=== PATIENT | female | born 1960 | race Caucasian/White ===

== ENCOUNTER → 2017-05-16 | Outpatient (CLI) | payer OTHER ==
[~2017-05-16] MED LIST: GADOBUTROL 10 ML VIAL IVP ONE
== END ==
LOC: FIMAGING 14:01
PROVIDERS: ATTEND Internal Medicine Hematology & Oncology
DX: Z12.39 Encounter for other screening for malignant neoplasm of breast (principal); Z85.3 Personal history of malignant neoplasm of breast; Z90.12 Acquired absence of left breast and nipple
CPT/HCPCS: A9585

== ENCOUNTER 2017-06-12 06:51 | Day surgery (SDC) | payer OTHER ==
--- NOTE | 2017-06-03 10:31 | GHP ---
[f rep st] PREOP HISTORY AND PHYSICAL DATE OF ADMISSION: 06/12/2017 HISTORY OF PRESENT ILLNESS: The patient is a pleasant 57-year-old female with a history of recurrent left breast cancer who now presents with a left chest wall recurrence and is here for wide local excision. The patient was initially diagnosed with a T1c N1a M0 grade 2 invasive ductal carcinoma which was ER/SC positive and HER-2/darrell negative in August of 2008. She was treated with lumpectomy and radiation therapy and declined hormonal therapy at that time. In 2012, she was found to have a new abnormality in her left breast on routine mammography, and a biopsy revealed a new grade 1 invasive ductal carcinoma, and so she elected for unilateral mastectomy. [place] node was not detected at that time due to her previous axillary lymph node dissection. Due to osteopenia , she opted out of hormonal therapy again. She presented to us with small red nodules under her left mastectomy scar. Initially she thought these were mosquito bites, but they did not go away. Ultimately, biopsy in the office was consistent with metastatic breast cancer. Since then, she has seen her oncologist, Dr. Freeman. She has had an MRI showing a fluid collection measuring 5 cm x 4 cm x 0.8 cm. PET-CT showed no evidence of metastatic disease. PAST MEDICAL HISTORY: Includes breast cancer, as outlined above. Also history of migraine headaches and atrial fibrillation. PAST SURGICAL HISTORY: Lumpectomy with axillary node dissection and unilateral mastectomy as described above. MEDICATIONS: Include: Aspirin, turmeric, calcium, magnesium, CoQ10, vitamin D , B complex. ALLERGIES: Benadryl, codeine, sulfa. SOCIAL HISTORY: Patient is . She is retired from [employer]. She is a never smoker and drinks alcohol on rare occasion. She has a son, and her family lives in [place]. FAMILY HISTORY: Father: Sudden cardiac disease in his 40s. REVIEW OF SYSTEMS: Negative aside from that in the HPI. PHYSICAL EXAMINATION: GENERAL: Well-developed, well-nourished, 57-year-old female, alert and oriented x3 and in no acute distress. HEENT: Normocephalic, atraumatic. CHEST: Clear to auscultation bilaterally. CARDIAC: Regular rate and rhythm. ABDOMEN: Soft, nontender. EXTREMITIES: Warm and dry without edema. BREASTS: Surgical absence of left breast. Inflammation without redness inferior to her mastectomy scar on the left lateral chest wall. Biopsy sites healing. No erythema. No lymphadenopathy. IMPRESSION: This is a 57-year-old female with history of 2 primary left breast cancers now status post mastectomy with chest wall recurrence and no imaging evidence of distant metastasis. PLAN: The plan is to proceed with local wide excision of her left chest wall. 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 Risks and options have been discussed including, but not limited to, bleeding, infection, injury to a nerve, failure to close wound, need for skin graft, damage to surrounding structures, recurrence, need for further surgery and/or therapies and other problems, and she requests to proceed. /[id number]/MODL MTDD
[2017-06-12] MEDS ORDERED: LIDOCAINE 1% 2 ML INJ ONE (07:11)
[2017-06-12] MEDS ORDERED: ceFAZolin 2 GM/SWFI 2 GM/20 ML SYR IVP ONE (07:16)
[2017-06-12] MEDS ORDERED: LR 1,000 ML IV ONE (07:20)
--- NOTE | 2017-06-12 07:24 | PDHPUP ---
History & Physical Update H&P update statement: This history and physical update is based on an assessment of the patient which was completed after admission or registration (within 24 hours), but prior to the surgery/procedure. H&P update: H&P reviewed & patient examined, no change in patient's condition since H&P completed
--- NOTE | 2017-06-12 08:07 | PDANEPAE ---
ANE History of Present Illness excision of l chest wall mass. History of breast mass ANE Past Medical History - Cardiovascular History Hx Hypertension: No Hx Arrhythmias: Yes Hx Coronary Artery / Peripheral Vascular Disease: No Hx CHF / Valvular Disease: No Cardiovascular History Comment: chronic paroxismal Afib - asymptomatic. father of [place] age 48 - Pulmonary History Hx COPD: No Hx Asthma/Reactive Airway Disease: Yes Hx Recent Upper Respiratory Infection: No Hx Oxygen in Use at Home: No Hx Sleep Apnea: No Sleep Apnea Screening Result - Last Documented: Negative Pulmonary History Comment: asthma as teenager - allergy induced - Neurologic History Hx Cerebrovascular Accident: No Hx Seizures: No Hx Dementia: No Neurologic History Comment: migraine H/As - Endocrine History Hx Diabetes: No Hypothyroid: No Obesity: no - Renal History Hx Renal Disorders: Yes Renal History Comment: occas urinary frequency - Liver History Hx Hepatic Disorders: No - Neurological & Psychiatric Hx Hx Neurological and Psychiatric Disorders: No - Cancer History Hx Cancer: Yes Cancer History Comment: L breast CA. L breast lumpectomy 2009x2, with radiation. 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 occ. heartburn with late meals\\\\\\\\\\\\\\\\\\. colonoscopy 2009 with mild diverticulitis - Other Health History Other Health History: early onset macular degeneration. mild osteoarthritis to neck. missing upper R tooth - Chronic Pain History Chronic Pain: No - Surgical History Prior Surgeries: MASTECTOMY LENOA. AXILLARY EXCISION. L breast lumpectomy 08/18. revision 10/16. emergent C section 1997 ANE Review of Systems Review of Systems: - Exercise capacity METS (RN): 4 METS ANE Patient History - Allergies Allergies/Adverse Reactions: codeine Allergy (Intermediate, Verified 08/17/13 12:59) Other-Enter Comments latex Allergy (Intermediate, Verified 08/17/13 12:59) Rash Sulfa (Sulfonamide Antibiotics) Allergy (Intermediate, Verified 08/17/13 12:59) Altered Taste unknown antibiotic Allergy (Intermediate, Uncoded 06/11/17 14:47) legs swelling - Home Medications Home Medications: Cholecalciferol Vit D3 [Vitamin D3 2000 units (OTC)] 4,000 units PO DAILY [Last Taken 06/07/17] Herbals/Supplements -Info Only 1 each PO AD 08/16/13 [Last Taken 06/07/17] Ubidecarenone [Co Q10] 100 mg PO DAILY 08/16/13 [Last Taken 06/07/17] Calcium Carbonate [Tums 500MG (OTC)] 1,000 mg PO PRN PRN 08/17/13 [Last Taken ] - NPO status NPO Since - Liquids (Date): 06/11/17 NPO Since - Liquids (Time): 22:45 NPO Since - Solids (Date): 06/11/17 NPO Since - Solids (Time): 22:15 - Anes Hx Anes Hx: post operative nausea - Smoking Hx Smoking Status: Never smoked - Alcohol Use Alcohol Use: None - Family Anes Hx Family Anes Hx: none Family Hx Anesthesia Complications: no ANE Labs/Vital Signs - Vital Signs Blood Pressure: 112/71 Heart Rate: 97 Respiratory Rate: 16 O2 Sat (%): 96 Height: 161.93 cm Weight: 48.988 kg ANE Physical Exam - Airway Neck exam: FROM Mallampati Score: Class 1 - Pulmonary Pulmonary: clear to auscultation - Cardiovascular Cardiovascular: regular rate and rhythym - ASA Status ASA Status: II ANE Anesthesia Plan Anesthesia Plan: GA w LMA
[2017-06-12] MEDS ORDERED: THROMBIN (BOVINE) 5,000 UNIT VIAL TP ONE ×2 (08:16→08:44)
[2017-06-12] MEDS ORDERED: PROPOFOL 200 MG/20 ML VIAL ONE ×2 (08:20→08:26)
[2017-06-12] MEDS ORDERED: fentaNYL 100 MCG/2 ML INJ ONE (08:20)
[2017-06-12] MEDS ORDERED: DEXAMETHASONE 4 MG/ML VIAL ONE (08:22)
[2017-06-12] MEDS ORDERED: MIDAZOLAM 2 MG/2 ML VIAL IVP ONE (08:24)
[2017-06-12] MEDS ORDERED: BUPIVACAINE 0.5% 30 ML SDV ONE (08:36)
[2017-06-12] MEDS ORDERED: CALCIUM CHLORIDE 1 GM/10 ML INJ ONE (08:44)
[2017-06-12] MEDS: CALCIUM CHLORIDE 1 GM/10 ML INJ ONE ×2 (08:50→09:43)
[2017-06-12] MEDS ORDERED: ONDANSETRON 4 MG/2 ML VIAL ONE (09:17)
[2017-06-12] MEDS ORDERED: KETOROLAC 30 MG/1 ML SDV ONE (09:30)
[2017-06-12] MEDS ORDERED: DEXAMETHASONE 4 MG/ML VIAL IVP PRN (10:05)
[2017-06-12] MEDS ORDERED: NALOXONE HCL 0.4 MG/ML INJ IVP PRN (10:05)
[2017-06-12] MEDS ORDERED: PROMETHAZINE HCL 25 MG/ML INJ IVP PRN (10:05)
[2017-06-12] MEDS ORDERED: HYDROCODONE/APAP 5/325 TAB PO PRN (10:05)
[2017-06-12] MEDS ORDERED: fentaNYL 100 MCG/2 ML INJ IVP PRN (10:05)
--- NOTE | 2017-06-12 10:22 | POSTOPPROG ---
Post Op Note Date of Operation: 06/12/17 Surgeon: Stanley Metzger Lamp Mechanic: Stanley VILLANUEVA Anesthesiologist: Dr Swenson Anesthesia: GET(General Endotracheal) Pre-op Diagnosis: left chest mass Post-op Diagnosis: same, recurrent cancer Indication: recurrent cancer Procedure: Excision large Left chest wall mass, PRP injection Findings: chest wall mass Inf/Abcess present in the surg proc area at time of surgery?: No Depth: Organ Space EBL: 50-100 Drains: Simba Marino
--- NOTE | 2017-06-12 10:38 | POSTANESTH ---
Post Anesthetic Evaluation Cardiovascular Status: Normal, Stable Respiratory Status: Normal, Stable Level of Consciousness/Mental Status: Can Participate in Eval Pain Control: Adequate, Prn Tx Ordered Nausea/Vomiting Control: Adequate, Prn Tx Ordered Complications Possibly Related to Anesthesia: None Noted
[2017-06-12 10:47] VITALS: TEMP 97.5; O2SAT 95
[2017-06-12 10:55] VITALS: RESP 14
[2017-06-12 12:09] VITALS: BP 104/72; PULSE 59
--- NOTE | 2017-06-28 12:52 | GOP ---
[f rep st] OPERATIVE REPORT DATE OF OPERATION: 06/12/2017 SURGEON: Eladio Moreland MD COLOR ARTIST: Stanley Metzger, PAC. ANESTHESIOLOGIST: Jair Swenson MD. PREOPERATIVE DIAGNOSIS: Chest wall recurrence of breast cancer. POSTOPERATIVE DIAGNOSIS: Chest wall recurrence of breast cancer. PROCEDURE PERFORMED: Wide excision of chest wall mass with advancement flap closure and some platele t-rich plasma injection. FINDINGS: DESCRIPTION OF PROCEDURE: The patient was taken to the operating room, where she received satisfacto ry general endotracheal anesthesia by Dr. Swenson. She was placed in a supine position with the left a rm outstretched on an arm board, prepped and draped in the usual sterile fashion. Elliptical skin in cision was made to include her previous mastectomy scar as well as the scar of her recent biopsy. Fu ll-thickness excision was done down to the ribs, including the pectoral muscle underneath the biopsy cavity, including the entire seroma cavity from her biopsy. Hemostasis was carefully obtained. The entire specimen was oriented and sent to Pathology. Skin flaps were elevated up as much as possible and advanced. Some protein-rich plasma had been obtained and was sprayed over the incision along wit h some 0.5% Marcaine and some topical thrombin. A 10 mm flat MATTI drain was brought out through a sepa rate stab incision and secured to the skin with a silk suture. The wound was then closed with 3-0 Vi cryl for the subcutaneous tissue and a running 3-0 Monoderm Quill for the skin. Wound was dressed. She tolerated procedure well, taken to recovery room in good condition. /[id number]/MODL
== END 2017-06-12 12:30 | disposition home or self-care (01) ==
LOC: FSGY 06:51
PROVIDERS: ATTEND Surgery
PROC: 3E013GC Introduction of Other Therapeutic Substance into Subcutaneous Tissue, Percutaneous Approach (ICD-10-PCS; principal; 2017-06-12 08:30)
PROC: 0HTU0ZZ Resection of Left Breast, Open Approach (ICD-10-PCS; principal; 2017-06-12 08:30)
DX: C50.412 Malignant neoplasm of upper-outer quadrant of left female breast (principal); I48.92 Unspecified atrial flutter; M85.80 Other specified disorders of bone density and structure, unspecified site; G43.909 Migraine, unspecified, not intractable, without status migrainosus; Z82.49 Family history of ischemic heart disease and other diseases of the circulatory system; Z90.12 Acquired absence of left breast and nipple
CPT/HCPCS: 0232T; 19303; J1100; J1885; J2250; J2405; J2704; J3010